=== PATIENT | female | born 1965 | race Caucasian/White ===

== ENCOUNTER 2021-10-03 04:45 | Day surgery (SDC) | payer OTHER ==
[2021-10-02 07:55] VITALS: BMI 31.4
[2021-10-03 11:26] VITALS: TEMP 97.3
[2021-10-03 11:50] VITALS: PULSE 69
[2021-10-03 11:51] VITALS: BP 138/89
== END 2021-10-03 12:20 | disposition home or self-care (01) ==
LOC: JASU-ENDO 04:45
PROVIDERS: ATTEND Internal Medicine Gastroenterology
PROC: 0DBL8ZX Excision of Transverse Colon, Via Natural or Artificial Opening Endoscopic, Diagnostic (ICD-10-PCS; principal; 2021-10-03 10:30)
DX: Z12.11 Encounter for screening for malignant neoplasm of colon (principal); D12.3 Benign neoplasm of transverse colon; K57.30 Diverticulosis of large intestine without perforation or abscess without bleeding; K64.8 Other hemorrhoids
CPT/HCPCS: 88305-TC